=== PATIENT | female | born 1985 | race Caucasian/White ===

== ENCOUNTER 2016-09-20 23:51 | Emergency (ER) | payer OTHER ==
[~2016-09-20] VITALS: Ht 167.6 cm; Wt 49.0 kg
[2016-09-21 00:08] VITALS: BP 116/75; PULSE 74; RESP 16; TEMP 98.7; O2SAT 98
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
== END 2016-09-21 | disposition left against medical advice (07) ==
LOC: NEPD 23:51
DX: T76.21XA Adult sexual abuse, suspected, initial encounter (principal)
CPT/HCPCS: 99281

== ENCOUNTER 2017-01-06 01:46 | Inpatient (IN) | payer OTHER ==
[2017-01-06] VITALS (12 sets, daily range): BP systolic 94–126; BP diastolic 56–79; PULSE 58–98; RESP 16–18; TEMP 96.4–99; O2SAT 96–100
[~2017-01-06] VITALS: Ht 162.6 cm; Wt 45.0 kg
[2017-01-06] MEDS ORDERED: ceFAZolin 2 GM PREMIX 50 ML ONE (01:59)
[2017-01-06] MEDS ORDERED: MORPHINE SULFATE 8 MG/ML INJ ONE (01:59)
[2017-01-06] MEDS ORDERED: ONDANSETRON HCL 4 MG/2 ML VIAL IV PUSH ONE ×2 (02:00→09:29)
[2017-01-06] MEDS ORDERED: DIPHTH/TETANUS/ACEL PERTUSSIS (BOOSTER) 0.5 ML VIAL/PFS IM ONE ×3 (02:00→02:10)
[2017-01-06] MEDS ORDERED: ONDANSETRON HCL 4 MG/2 ML VIAL ONE (02:00)
[2017-01-06] MEDS ORDERED: SODIUM CHLOR 0.9% 1000 ML INJ 1,000 ML IV ONE (02:00)
[2017-01-06] MEDS ORDERED: MORPHINE SULFATE 4 MG/ML INJ IV PUSH ONE (02:00)
[2017-01-06] MEDS ORDERED: ceFAZolin 2 GM PREMIX 50 ML IV STA (02:00)
[2017-01-06 02:22] LABS: I-STAT POTASSIUM 3.5 MMOL/L (3.5-4.9); I-STAT SODIUM 138 MMOL/L (138-146)
[2017-01-06 02:24] LABS: AUTOMATED NEUTROPHIL # 5.6 TH/MM3 (1.8-7.7); BASOPHIL % 0.3 % (0.0-2.0); EOSINOPHIL # 0.1 TH/MM3 (0-0.4); EOSINOPHIL % 0.6 % (0.0-4.0); HEMATOCRIT 40.7 % (35.0-46.0); HEMO FLAGS DIFF FINAL; LYMPH % 27.6 % (9.0-44.0); LYMPHOCYTE # 2.4 TH/MM3 (1.0-4.8); MEAN CELL VOLUME 91.7 FL (80.0-100.0); MEAN CORPUSCULAR HEMOGLOBIN 31.7 PG (27.0-34.0); MEAN CORPUSCULAR HGB CONC 34.6 % (32.0-36.0); MONO % 8.1 % (0.0-8.0); NEUT % 63.4 % (16.0-70.0); PLATELET COUNT 163 TH/MM3 (150-450); RED BLOOD COUNT 4.43 MIL/MM3 (4.00-5.30); RED CELL DISTRIBUTION WIDTH 12.7 % (11.6-17.2); WHITE BLOOD COUNT 8.8 TH/MM3 (4.0-11.0)
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
[2017-01-06 02:33] LABS: APTT (PATIENT) 26.8 SEC (24.3-30.1); PROTHROMBIN TIME - PATIENT 10.8 SEC (9.8-11.6)
[2017-01-06 02:41] LABS: BETA HCG QUANT LESS THAN 1 MIU/ML (0-5)
[2017-01-06] MEDS ORDERED: IOHEXOL 350 MG/ML 10 ML VIAL (for RAD DIAG) IVCONTRAST ONE (02:41)
[2017-01-06 02:42] LABS: ALCOHOL LESS THAN 3 MG/DL (0-5)
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
[2017-01-06] MEDS ORDERED: MISCELLANEOUS NURSING INFORMATION XX SCH (03:45)
[2017-01-06] MEDS ORDERED: LACTATED RINGER'S 1000 ML INJ 1,000 ML IV SCH (03:45)
[2017-01-06] MEDS ORDERED: ONDANSETRON HCL 4 MG/2 ML VIAL IV PUSH PRN (03:45)
[2017-01-06] MEDS ORDERED: CHLORHEXIDINE GLUCONATE 2 % 1 PACK (2 CLOTHS) TOP PRN (03:45)
[2017-01-06] MEDS ORDERED: HYDROmorphone HCL PF 1 MG/ML VIAL IV PUSH PRN ×2 (04:00)
[2017-01-06] MEDS: CHLORHEXIDINE GLUCONATE 2 % 1 PACK (2 CLOTHS) TOP SCH ×2 (04:00→21:40)
--- NOTE | 2017-01-06 04:28 | PD ---
Physical Exam Date Seen by Provider: Jan 06, 2017 Time Seen by Provider: 04:27 Narrative For full history and physical examination please see previous provider's note. I was asked to repair laceration to patient's lip and ankle. Data Data Last Documented VS Vital Signs Date Time Temp Pulse Resp B/P (MAP) Pulse Ox O2 Delivery O2 Flow Rate FiO2 01/06/17 03:10 96 16 115/69 (84) 100 Nasal Cannula 2.00 01/06/17 01:48 21 Orders Orders Morphine Inj (Morphine Inj) (01/06/17 01:59) Cefazolin 2 Gm Premix (Ancef 2 Gm Premix (01/06/17 01:59) Ondansetron Inj (Zofran Inj) (01/06/17 02:00) Meyw-Zol-Zdmftw (Booster) Inj (Boostrix (01/06/17 02:00) I-Stat Profile (01/06/17 01:58) I-Stat Creatinine (01/06/17 01:58) Complete Blood Count With Diff (01/06/17 01:58) Prothrombin Time / Inr (Pt) (01/06/17 01:58) Act Partial Throm Time (Ptt) (01/06/17 01:58) Type And Screen (01/06/17 01:58) Alcohol (Ethanol) (01/06/17 01:58) Beta Hcg (Quant/Titer) (01/06/17 01:58) Urinalysis - C+S If Indicated (01/06/17 01:58) Chest, Single Ap (01/06/17 01:58) Ct Brain W/O Iv Contrast(Rout) (01/06/17 01:58) Ct Cerv Spine W/O Contrast (01/06/17 01:58) Ct Abd/Pel W Iv Contrast(Rout) (01/06/17 01:58) Ct Thorax/ Chest W Iv Contrast (01/06/17 01:58) Iv Access Insert/Monitor (01/06/17 01:58) Ecg Monitoring (01/06/17 01:58) Oximetry (01/06/17 01:58) Oxygen Administration (01/06/17 01:58) Drug Screen, Random Urine (01/06/17 01:58) Tibia/Fibula (Ap/Lat) (01/06/17 ) Elbow, Limited (Ap&Lat) (01/06/17 ) Knee, Ltd (1 Or 2vws) (01/06/17 ) Ankle, Limited (Ap&Lat) (01/06/17 ) Hip, Uni(Ap&Lat) W Ap Pelvis (01/06/17 ) Cefazolin 2 Gm Premix (Ancef 2 Gm Premix (01/06/17 02:00) Fylp-Twp-Hsxaql (Booster) Inj (Boostrix (01/06/17 02:00) Ondansetron Inj (Zofran Inj) (01/06/17 02:00) Morphine Inj (Morphine Inj) (01/06/17 02:00) Sodium Chlor 0.9% 1000 Ml Inj (Ns 1000 M (01/06/17 02:00) Ulsb-Byc-Ckeyjm (Booster) Inj (Boostrix (01/06/17 02:10) Iohexol 350 Inj (Omnipaque 350 Inj) (01/06/17 02:41) Consult Orthopedic (01/06/17 ) Splinting (01/06/17 ) (Hub Use Only)Inp Phy Cons/Ref (01/06/17 ) Admit Order (Ed Use Only) (01/06/17 03:42) Labs Laboratory Tests Test 01/06/17 02:00 White Blood Count 8.8 TH/MM3 Red Blood Count 4.43 MIL/MM3 Hemoglobin 14.1 GM/DL Bedside Hemoglobin 14.3 G/DL Hematocrit 40.7 % Bedside Hematocrit 42.0 % Mean Corpuscular Volume 91.7 FL Mean Corpuscular Hemoglobin 31.7 PG Mean Corpuscular Hemoglobin Concent 34.6 % Red Cell Distribution Width 12.7 % Platelet Count 163 TH/MM3 Mean Platelet Volume 9.7 FL Neutrophils (%) (Auto) 63.4 % Lymphocytes (%) (Auto) 27.6 % Monocytes (%) (Auto) 8.1 % Eosinophils (%) (Auto) 0.6 % Basophils (%) (Auto) 0.3 % Neutrophils # (Auto) 5.6 TH/MM3 Lymphocytes # (Auto) 2.4 TH/MM3 Monocytes # (Auto) 0.7 TH/MM3 Eosinophils # (Auto) 0.1 TH/MM3 Basophils # (Auto) 0.0 TH/MM3 CBC Comment DIFF FINAL Differential Comment Prothrombin Time 10.8 SEC Prothromb Time International Ratio 1.0 RATIO Activated Partial Thromboplast Time 26.8 SEC Bedside Sodium 138 MMOL/L Bedside Potassium 3.5 MMOL/L Bedside Chloride 99 MMOL/L Bedside Blood Urea Nitrogen 12 MG/DL Bedside Creatinine 0.6 MG/DL Bedside Glucose 109 MG/DL Human Chorionic Gonadotropin, Quant LESS THAN 1 MIU/ML Ethyl Alcohol Level LESS THAN 3 MG/DL [facility] Medical Record Reviewed: Yes Supervised Visit with KATLIN: Yes Procedures Procedure Narrative LACERATION LOCATION: Left upper lip LENGTH: 0.75 centimeter NUMBER OF STITCHES/VINCE: 4 stitches REPAIR: The area of the laceration was prepped with Betadine and sterilely draped. The laceration was infiltrated with 1% lidocaine. The wound was copiously irrigated and explored without evidence of foreign body, tendon injury or neurovascular injury. The wound was closed using 6-0 Ethilon. This was a 1 layer repair. A sterile dressing was applied. The patient was advised to keep the dressing clean and dry. Patient tolerated the procedure well. LACERATION LOCATION: Right ankle LENGTH: 3 cm NUMBER OF STITCHES/VINCE: 5 stitches REPAIR: The area of the laceration was prepped with Betadine and sterilely draped. The laceration was infiltrated with Percent lidocaine. The wound was copiously irrigated and explored without evidence of foreign body, tendon injury or neurovascular injury. The wound was closed using 4-0 Ethilon. This was a 1 layer repair. A sterile dressing was applied. The patient was advised to keep the dressing clean and dry. Patient tolerated the procedure well. Diagnosis Primary Impression: Tibial fracture Additional Impression: Malleolar fracture Scripts No Active Prescriptions or Reported Fay Carlos Jan 06, 2017 04:28
[2017-01-06] MEDS ORDERED: WALKER/ADULT/FO1 MIS (06:18)
[2017-01-06] MEDS ORDERED: HYDR-3580 PO (06:18)
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
[2017-01-06] MEDS ORDERED: INSULIN HUMAN REGULAR 1,000 UNITS/10 ML VIAL SQ PRN (07:00)
[2017-01-06] MEDS ORDERED: POVIDONE IODINE 5% (ANTISEPSIS KIT) 4 APPLICATIONS EACH NARE PRN (07:00)
[2017-01-06] MEDS ORDERED: SODIUM CHLORID 0.9% 500 ML IV PRN (07:00)
[2017-01-06] MEDS ORDERED: LACTATED RINGER'S 1000 ML IV PRN (07:00)
[2017-01-06] MEDS ORDERED: CHLORHEXIDINE GLUCONATE 2 % 1 PACK (2 CLOTHS) TOPICAL PRN (07:00)
[2017-01-06] MEDS ORDERED: ceFAZolin INJ 1,000 MG VIAL ONE (07:04)
[2017-01-06] MEDS ORDERED: GENTAMICIN SULFATE 80 MG/2 ML VIAL ONE (07:05)
[2017-01-06] MEDS ORDERED: SODIUM CHLOR 0.9% 250 ML INJ 250 ML ONE (07:05)
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
[2017-01-06] MEDS ORDERED: PANTOPRAZOLE SODIUM 40 MG VIAL IV PUSH ONE (07:15)
[2017-01-06] MEDS ORDERED: LACTULOSE SYRUP 20 GM/30 ML CUP PO PRN (07:15)
[2017-01-06] MEDS ORDERED: HYDROmorphone HCL PF 2 MG/ML VIAL ONE (07:23)
[2017-01-06] MEDS ORDERED: PERC5TAB12 PO (07:24)
--- NOTE | 2017-01-06 07:28 | PD.OP ---
cc: William Weinstein MD Operative Report Date of Surgery: Jan 06, 2017 Preoperative Diagnosis: Right ankle medial malleolus fracture Postoperative Diagnosis: Procedure: Open reduction internal fixation right ankle medial malleolus Anesthesia: Gen. Surgeon: William Weinstein Career Services Officer(s): CELE Torres PA-C The surgical procedure was assisted by my physician phlebotomist medical lab assistant. My P.A. presence was necessary throughout this case for the manipulation and positioning of the surgical extremity. My P.A. was assisting me throughout the duration of this procedure. The skill set of a physician phlebotomist medical lab assistant was medically necessary to complete this procedure. During the surgical case the assembler surgical garment was working at the back table and the physician phlebotomist medical lab assistant was directly assisting me. Operation and Findings: Implants used :ITS Patient was seen and evaluated preoperatively and found to have a displaced right ankle fracture. Informed consent was obtained after a detailed discussion of risk and benefits of surgery. The operative site was marked. Patient was brought to the OR, placed on the OR table, and given IV sedation and general endotracheal anesthesia. IV antibiotics were given preoperatively. A timeout procedure was performed. The operative leg was prepped with alcohol followed by Hibiclens and draped in the usual sterile fashion. Next attention was turned towards the medial malleolus. The medial malleolus supposed through a 5 cm incision. Saphenous vein was retracted. Fracture was visualized. Fracture was cleaned with curettes. There was some comminution along the cortical edge of the fracture. Fracture was now reduced and keyed into anatomic alignment. K wires were used to hold provisional fixation. Fluoroscopy confirmed excellent alignment of fracture. A plate was contoured to fit the medial distal tibia. Plate was provisionally held to bone with K wires. Fluoroscopy confirmed appropriate plate placement. 3.5 cortical screws were used to compress plate to bone. Additional 3.5 cortical lag screw was placed to compress fracture. Multiple screws were placed above and below fracture. Final fluoroscopy revealed excellent of fracture with well-placed hardware. Next, attention was turned to the syndesmosis. The syndesmosis was stressed. There was no widening of the syndesmosis with external rotation of the ankle. Incisions were thoroughly irrigated. The subcutaneous tissue was closed with 3- 0 Vicryl and the skin was closed with 3-0 nylon. Sterile dressings were applied. A well molded well-padded splint was applied. The patient was transferred to Recovery in stable condition. Needle and sponge counts were correct. William Weinstein MD Jan 06, 2017 07:28
[2017-01-06] MEDS ORDERED: Post-op Orders (for Pharmacy) MISC XX ONE (07:30)
[2017-01-06] MEDS ORDERED: VANCOMYCIN HCL 1000 MG VIAL ONE (07:57)
[2017-01-06] MEDS ORDERED: *MEPERIDINE 25 MG INJ VIAL PERIprocedural Use ONLY ONE (08:45)
[2017-01-06] MEDS: DOCUSATE SODIUM 50 MG/SENNA 8.6 MG TAB PO SCH ×2 (09:00→21:39)
[2017-01-06] MEDS: BACITRACIN TOP OINT 15 GM TUBE TOP SCH ×2 (09:00→21:00)
[2017-01-06] MEDS ORDERED: PROPOFOL 200 MG/20 ML AMP IV ONE (09:29)
[2017-01-06] MEDS ORDERED: LIDOCAINE HCL 1% PF 5 ML AMPULE OTHER ONE (09:29)
[2017-01-06] MEDS ORDERED: ceFAZolin 1 GM ADDVANTAGE VIAL IV ONE (09:29)
[2017-01-06] MEDS ORDERED: DEXAMETHASONE SOD PHOS 4 MG/ML VIAL IV ONE (09:29)
[2017-01-06] MEDS ORDERED: MORPHINE SULFATE 4 MG/ML INJ IV PUSH PRN (10:00)
--- NOTE | 2017-01-06 12:03 | HHI.PR ---
Subjective Subjective Notes S/P ORIF RIGHT ankle medial malleolus Sedated Remarks seen and examined with REVERSE ENGINEER-agree with assessment and plan pain control DVT prophylaxis Objective Vitals/I&O Vital Signs Date Time Temp Pulse Resp B/P (MAP) Pulse Ox O2 Delivery O2 Flow Rate FiO2 01/06/17 09:30 98.4 65 18 117/74 (88) 99 01/06/17 09:15 Room Air 01/06/17 09:00 2 01/06/17 01:48 21 Labs Laboratory Tests Test 01/06/17 02:00 White Blood Count 8.8 Red Blood Count 4.43 Hemoglobin 14.1 Bedside Hemoglobin 14.3 Hematocrit 40.7 Bedside Hematocrit 42.0 Mean Corpuscular Volume 91.7 Mean Corpuscular Hemoglobin 31.7 Mean Corpuscular Hemoglobin Concent 34.6 Red Cell Distribution Width 12.7 Platelet Count 163 Mean Platelet Volume 9.7 Neutrophils (%) (Auto) 63.4 Lymphocytes (%) (Auto) 27.6 Monocytes (%) (Auto) 8.1 Eosinophils (%) (Auto) 0.6 Basophils (%) (Auto) 0.3 Neutrophils # (Auto) 5.6 Lymphocytes # (Auto) 2.4 Monocytes # (Auto) 0.7 Eosinophils # (Auto) 0.1 Basophils # (Auto) 0.0 CBC Comment DIFF FINAL Differential Comment Prothrombin Time 10.8 Prothromb Time International Ratio 1.0 Activated Partial Thromboplast Time 26.8 Bedside Sodium 138 Bedside Potassium 3.5 Bedside Chloride 99 Bedside Blood Urea Nitrogen 12 Bedside Creatinine 0.6 Bedside Glucose 109 Human Chorionic Gonadotropin, Quant LESS THAN 1 Ethyl Alcohol Level LESS THAN 3 Radiology Last Impressions Head CT 01/06/17157 Signed Impressions: Service Date/Time: Friday, January 06, 2017 02:11 - CONCLUSION: Normal examination. Michi Rodriguez Jr., MD Chest X-Ray 01/06/17157 Signed Impressions: Service Date/Time: Friday, January 06, 2017 01:53 - CONCLUSION: No acute disease. Michi Rodriguez Jr., MD Chest CT 01/06/17157 Signed Impressions: Service Date/Time: Friday, January 06, 2017 02:20 - CONCLUSION: No acute disease. Michi Rodriguez Jr., MD Cervical Spine CT 01/06/17157 Signed Impressions: Service Date/Time: Friday, January 06, 2017 02:13 - CONCLUSION: Normal examination. Michi Rodriguez Jr., MD Abdomen/Pelvis CT 01/06/178 Signed Impressions: Service Date/Time: Friday, January 06, 2017 02:17 - CONCLUSION: 1. No acute abnormality. 2. 8mm low-density lesion involving the right lobe of the liver likely relating to a cyst or hemangioma. Michi Rodriguez Jr., MD Tibia/Fibula X-Ray 01/06/17 Signed Impressions: Service Date/Time: Friday, January 06, 2017 02:45 - CONCLUSION: 1. Limited study. 2. Acute distal tibial fracture. Michi Rodriguez Jr., MD Knee X-Ray 01/06/17 Signed Impressions: Service Date/Time: Friday, January 06, 2017 02:44 - CONCLUSION: No acute disease. Michi Rodriguez Jr., MD Hip and Pelvis X-Ray 01/06/17 Signed Impressions: Service Date/Time: Friday, January 06, 2017 02:40 - CONCLUSION: Unremarkable examination of the right hip. Michi Rodriguez Jr., MD Elbow X-Ray 01/06/17 Signed Impressions: Service Date/Time: Friday, January 06, 2017 02:53 - CONCLUSION: No acute disease. Michi Rodriguez Jr., MD Ankle X-Ray 01/06/17 Signed Impressions: Service Date/Time: Friday, January 06, 2017 02:47 - CONCLUSION: Acute distal tibial fracture. Michi Rodriguez Jr., MD Narrative Exam GENERAL: 31 year old cachectic female lying in bed, sedated. SKIN: Warm and dry. Left lip lac- sutures intact. HEAD: Normocephalic. ENT: No nasal bleeding or discharge. Mucous membranes pink and moist. NECK: Trachea midline. No JVD. CARDIOVASCULAR: Regular rate and rhythm. RESPIRATORY: No accessory muscle use. Lungs clear to auscultation. Breath sounds equal bilaterally. GASTROINTESTINAL: Abdomen soft, non-tender, nondistended. + BS. MUSCULOSKELETAL: Extremities without cyanosis, or edema. RLE soft splint in place. MAEW. + perfused NEUROLOGICAL: Sedated. Normal speech. A/P Assessment and Plan INJURIES: RIGHT tibial fx extending into medial malleolus Lip lac (sutures) RIGHT ankle lac (sutures) PMHx: Substance abuse, 1 PPD smoker 01/06: ORIF RIGHT ankle medial malleolus Diet: Regular Pulm: IS Pain: Percocet, Dilaudid IV Activity: OOB. PT x 7 days/week (NWB RLE) Bowel: 2 [place]-colace, PRN Lactulose. LBM 0 DVT: SCD, Lovenox 40 QD RIGHT tibial fx extending into medial malleolus Orthopedics consulted S/P ORIF RIGHT ankle medial malleolus Pain control NWB RLE OOB- PT ordered 7 days/week Lip lac Sutures intact Cleanse daily with soap and water. Case management consulted to assist with discharge planning. Bradley Oneal Jan 06, 2017 12:02 Asuncion Momin MD Jan 06, 2017 16:42
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
[2017-01-06] MEDS ORDERED: ceFAZolin 2 GM PREMIX 50 ML IV SCH (13:00)
--- NOTE | 2017-01-06 13:31 | RADRPT ---
EXAM DATE/TIME: 01/06/2017 08:11 [facility] COMPARISON: ANKLE RIGHT LIMITED (AP&LAT), January 06, 2017, 2:47. INDICATIONS : ORIF of the right ankle. MEDICAL HISTORY : Smoker. SURGICAL HISTORY : section. Hysterectomy. ENCOUNTER: Subsequent ACUITY: 1 day PAIN SCORE: Non-responsive. LOCATION: Right ankle. CONCLUSION: Fluoroscopic images during placement of compression plate and screws along the distal tibia. Dylan Howard MD on January 06, 2017 at 13:16 Board Certified Radiologist. This report was verified electronically.
[2017-01-06] MEDS ORDERED: ENOXAPARIN SODIUM 40 MG/0.4 ML SYRINGE SQ SCH (14:00)
[2017-01-06] MEDS: oxyCODONE/ACETAMINOPHEN 5 MG/325 MG TAB PO PRN (14:00)
[2017-01-06] MEDS ORDERED: SENN1TAB PO (17:42)
[2017-01-06] MEDS: VANCOMYCIN INJ 1,000 MG in SODIUM CHLOR 0.9% 250 ML INJ 250 ML IV SCH (21:38)
[2017-01-06] MEDS: oxyCODONE/ACETAMINOPHEN 10 MG/325 MG TAB PO PRN (21:39)
[2017-01-07 02:00] VITALS: PULSE 67
[2017-01-07 02:10] LABS: BACTERIA, URINE RARE /hpf; BLOOD, URINE NEG (NEG); GLUCOSE,URINE NEG (NEG); KETONE, URINE NEG (NEG); MUCUS URINE FEW /lpf (OCC); NITRITE,URINE NEG (NEG); PH, URINE 6.5 (5.0-8.5); SQUAMOUS EPITHELIAL CELL URINE 3 /hpf (0-5); URINE COLOR LIGHT-YELLOW (YELLW/STRAW)
[2017-01-07 02:15] LABS: COMMENT (UR) CATH-CULT NOT IND; CULTURE IF INDICATED CATH CULTURE NOT IND
[2017-01-07 03:15] VITALS: BP 108/67; PULSE 67; RESP 18; TEMP 97.7; O2SAT 99
[2017-01-07] MEDS: oxyCODONE/ACETAMINOPHEN 10 MG/325 MG TAB PO PRN (05:42)
[2017-01-07 06:54] LABS: AUTOMATED NEUTROPHIL # 7.8 TH/MM3 (1.8-7.7); BASOPHIL % 0.4 % (0.0-2.0); EOSINOPHIL # 0.1 TH/MM3 (0-0.4); EOSINOPHIL % 0.7 % (0.0-4.0); HEMATOCRIT 38.9 % (35.0-46.0); HEMO FLAGS DIFF FINAL; LYMPH % 20.5 % (9.0-44.0); LYMPHOCYTE # 2.3 TH/MM3 (1.0-4.8); MEAN CELL VOLUME 93.7 FL (80.0-100.0); MEAN CORPUSCULAR HEMOGLOBIN 30.9 PG (27.0-34.0); MEAN CORPUSCULAR HGB CONC 32.9 % (32.0-36.0); MONO % 8.7 % (0.0-8.0); NEUT % 69.7 % (16.0-70.0); PLATELET COUNT 132 TH/MM3 (150-450); RED BLOOD COUNT 4.15 MIL/MM3 (4.00-5.30); RED CELL DISTRIBUTION WIDTH 12.9 % (11.6-17.2); WHITE BLOOD COUNT 11.1 TH/MM3 (4.0-11.0)
--- NOTE | 2017-01-07 07:00 | PD.ORT.PN ---
Subjective Subjective Remarks POD 1 s/p ORIF right medial malleolus diong well. reports mild pain but controlled. out of bed with walker Objective Vitals Vital Signs Date Time Temp Pulse Resp B/P (MAP) Pulse Ox O2 Delivery O2 Flow Rate FiO2 01/07/17 03:15 97.7 67 18 108/67 (81) 99 01/07/17 02:00 67 01/06/17 23:58 98.2 61 18 94/60 (71) 100 01/06/17 21:37 67 01/06/17 19:47 96.4 70 18 105/57 (73) 99 01/06/17 16:00 97.8 58 18 102/56 (71) 98 01/06/17 13:28 96 01/06/17 12:00 99.0 60 18 115/72 (86) 100 01/06/17 09:30 98.4 65 18 117/74 (88) 99 01/06/17 09:15 65 12 125/82 (96) 99 Room Air 01/06/17 09:00 63 15 130/78 (95) 100 Nasal Cannula 2 01/06/17 08:44 97.8 118 16 137/87 (104) 84 Simple Mask 10 I/O 01/06/17 01/06/17 01/06/17 01/07/17 01/07/17 01/07/17 07:00 15:00 23:00 07:00 15:00 23:00 Intake Total 1050 ml 2425 ml 610 ml 480 ml Output Total 30 ml Balance 1050 ml 2395 ml 610 ml 480 ml Intake Oral 600 ml 360 ml 480 ml IV Total 1050 ml 875 ml 250 ml Other 950 ml Output Estimated Blood Loss 30 ml # Voids 4 3 3 # Bowel Movements 0 0 0 Result Diagram: 01/06/17199 Imaging Last [address] 01/06/17157 Signed Impressions: Service Date/Time: Friday, January 06, 2017 02:11 - CONCLUSION: Normal examination. Michi Rodriguez Jr., MD Chest X-Ray 01/06/17157 Signed Impressions: Service Date/Time: Friday, January 06, 2017 01:53 - CONCLUSION: No acute disease. Michi Rordiguez Jr., MD Chest CT 01/06/17157 Signed Impressions: Service Date/Time: Friday, January 06, 2017 02:20 - CONCLUSION: No acute disease. Michi Rodriguez Jr., MD Cervical Spine CT 01/06/178 Signed Impressions: Service Date/Time: Friday, January 06, 2017 02:13 - CONCLUSION: Normal examination. Michi Rodriguez Jr., MD Abdomen/Pelvis CT 01/06/17157 Signed Impressions: Service Date/Time: Friday, January 06, 2017 02:17 - CONCLUSION: 1. No acute abnormality. 2. 8mm low-density lesion involving the right lobe of the liver likely relating to a cyst or hemangioma. Michi Rodriguez Jr., MD Tibia/Fibula X-Ray 01/06/17 Signed Impressions: Service Date/Time: Friday, January 06, 2017 02:45 - CONCLUSION: 1. Limited study. 2. Acute distal tibial fracture. Michi Rodriguez Jr., MD Knee X-Ray 01/06/17 Signed Impressions: Service Date/Time: Friday, January 06, 2017 02:44 - CONCLUSION: No acute disease. Michi Rodriguez Jr., MD Hip and Pelvis X-Ray 01/06/17 Signed Impressions: Service Date/Time: Friday, January 06, 2017 02:40 - CONCLUSION: Unremarkable examination of the right hip. Michi Rodriguez Jr., MD Elbow X-Ray 01/06/17 Signed Impressions: Service Date/Time: Friday, January 06, 2017 02:53 - CONCLUSION: No acute disease. Michi Rodriguez Jr., MD Ankle X-Ray 01/06/17 Signed Impressions: Service Date/Time: Friday, January 06, 2017 02:47 - CONCLUSION: Acute distal tibial fracture. Michi Rodriguez Jr., MD Objective Remarks RLE: +short leg splint. intact. NVI Assessment & Plan Assessment and Plan 1) Right medial malleolus fracture s/p ORIF - POD 1 -NWB -maintain splint at all times -elevate -DC home today per ortho -f/u with [facility] or [facility] in 2 weeks Cedric Monaco Jan 07, 2017 06:59
[2017-01-07 07:09] LABS: BICARBONATE 27.6 MEQ/L (21.0-32.0); POTASSIUM 3.9 MEQ/L (3.5-5.1)
[2017-01-07 08:00] VITALS: BP 120/70; PULSE 67; RESP 18; TEMP 96.8; O2SAT 99
[2017-01-07] MEDS: DOCUSATE SODIUM 50 MG/SENNA 8.6 MG TAB PO SCH (08:52)
[2017-01-07] MEDS: VANCOMYCIN INJ 1,000 MG in SODIUM CHLOR 0.9% 250 ML INJ 250 ML IV SCH (08:53)
[2017-01-07] MEDS: BACITRACIN TOP OINT 15 GM TUBE TOP SCH (08:54)
[2017-01-07 10:25] VITALS: PULSE 84
[2017-01-07] MEDS: oxyCODONE/ACETAMINOPHEN 5 MG/325 MG TAB PO PRN (10:26)
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
== END 2017-01-07 12:58 | disposition home or self-care (01) | DRG 494 ==
LOC: NEPC 01:46 → NEDA 03:44 → N06B 05:45
PROVIDERS: ADMIT Surgery Trauma Surgery; ATTEND Surgery Trauma Surgery
DX: S82.51XA Displaced fracture of medial malleolus of right tibia, initial encounter for closed fracture (principal); S91.011A Laceration without foreign body, right ankle, initial encounter; D18.00 Hemangioma unspecified site; V13.4XXA Pedal cycle driver injured in collision with car, pick-up truck or van in traffic accident, initial encounter; Y92.410 Unspecified street and highway as the place of occurrence of the external cause; S01.511A Laceration without foreign body of lip, initial encounter; F17.210 Nicotine dependence, cigarettes, uncomplicated
CPT/HCPCS: 12002; 12011; 70450; 71010; 71260; 72125; 73070; 73502; 73560; 73590; 73600; 74177; 76000; 80048; 80307; 81001; 82435; 82565; 82947; 84132; 84295; 84520; 84702; 85025; 85610; 85730; 86850; 86900; 86901; 90471; 90715; 94150; 96374; 96375; C1713; C9113; J0690; J1100; J1170; J1580; J1650; J2175; J2270; J2405; J3010; J3370; J7030; J7050; J7120; Q9967